=== PATIENT | female | born 1940 | race Two or more races ===

== ENCOUNTER → 2024-09-13 | Outpatient (CLI) | payer MEDICARE, SELFPAY ==
--- NOTE | 2024-09-13 14:00 | XR_ITS ---
Examination: CT chest, without intravenous contrast. Sagittal and coronal 2-D reconstructions. Exam date and time: September 13, 2024 1358 hours INDICATIONS: History lung nodules 17 years CTDI:vol (mGy) 12.7 DLP: (mGycm) 393 Technique: Multiple 3.0 mm axial sections of the chest to been obtained. Bone and lung density settings are obtained. Sagittal and coronal 2-D reconstructions have been obtained. Low dose protocols were performed. One or more of the following dose reduction techniques were used; automated exposure control, adjustment of the mA and/or KV according to patient size, use of iterative reconstruction technique. Findings: No thoracic aortic aneurysm dilatation Pulmonary artery segments are not enlarged Significant calcification left anterior descending coronary artery Mild enlargement cardiac contour Scarring in the lingular segment 2 mm pulmonary nodule left upper lobe image 74 No pneumonia or pulmonary edema No visualized liver or splenic lesion No gallstones No pancreatic mass IMPRESSION: 2 mm pulmonary nodule left upper lobe, with this study as baseline recommend 6 month follow-up CT chest without contrast
== END | disposition home or self-care (01) ==
PROVIDERS: Referring Provider Physician Assistant Medical; Visit Provider Physician Assistant Medical
DX: R91.1 Solitary pulmonary nodule (principal)
CPT/HCPCS: 71250

== ENCOUNTER → 2025-09-11 | Outpatient (CLI) | payer MEDICARE, SELFPAY ==
--- NOTE | 2025-09-11 11:00 | XR_ITS ---
Examination: CT chest, without intravenous contrast. Sagittal and coronal 2-D reconstructions. Exam date and time: September 11, 2025, 1059 hours, INDICATIONS: CT chest September 13, 2024 2 mm pulmonary nodule left upper lobe CTDI:vol (mGy) 14.8 DLP: (mGycm) 461 Technique: Multiple 3.0 mm axial sections of the chest to been obtained. Bone and lung density settings are obtained. Sagittal and coronal 2-D reconstructions have been obtained. Low dose protocols were performed. One or more of the following dose reduction techniques were used; automated exposure control, adjustment of the mA and/or KV according to patient size, use of iterative reconstruction technique. Findings: Thoracic aortic calcification no aneurysm dilatation Pulmonary artery segments are not enlarged Heavy calcification left anterior descending coronary artery and left circumflex coronary artery Mitral valvular calcification No mediastinal lymphadenopathy New 3 mm pulmonary nodule in the left lower lobe axial image 108 Stable 2 mm pulmonary nodule left upper lobe No lobar pneumonia or pulmonary edema No visualized liver or splenic lesion No gallstones No pancreatic mass IMPRESSION: New 3 mm pulmonary nodule in the left lower lobe, suggest continued 6-month follow-up CT chest without contrast
== END | disposition home or self-care (01) ==
PROVIDERS: PCP Family Medicine; Referring Provider Family Medicine; Visit Provider Family Medicine
DX: R91.1 Solitary pulmonary nodule (principal)
CPT/HCPCS: 71250